=== PATIENT | male | born 1925 | race Caucasian/White ===

== ENCOUNTER → 2016-03-10 | Outpatient (CLI) | payer OTHER ==
[2016-03-10 09:49] LABS: BASO % 0.2 %; BASO ABS # 0.01 K/uL (0-0.2); EOS % 3.6 %; HEMATOCRIT 39.5 % (42-52); IG% 1.1 %; LYMPH % 26.8 %; MEAN CELL VOLUME 96.1 fL (80-100); MEAN CORPUSCULAR HEMOGLOBIN 32.6 pg (25-34); MEAN CORPUSCULAR HGB CONC 33.9 g/dl (32-36); MEAN PLATELET VOLUME 9.7 fL (7.4-10.4); MONO % 9.2 %; NEUT % 59.1 %; PLATELET COUNT 206 K/uL (130-400); RED BLOOD COUNT 4.11 M/uL (4.7-6.1); WHITE BLOOD COUNT 5.22 K/uL (4.8-10.8)
[2016-03-10 10:04] LABS: ALKALINE PHOSPHATASE 91 U/L (45-117); ALT/SGPT 23 U/L (12-78); AST/SGOT 12 U/L (15-37); BLOOD UREA NITROGEN 26 mg/dl (7-18); BUN/CREATININE RATIO 20.2 (10-20); CARBON DIOXIDE 25 mmol/L (21-32); CHLORIDE 108 mmol/L (98-107); GLUCOSE 86 mg/dl (70-99); POTASSIUM 4.5 mmol/L (3.5-5.1); SODIUM 141 mmol/L (136-145)
[2016-03-10 10:36] LABS: COMPLETE YES
== END | disposition home or self-care (01) ==
LOC: C.LABVPSUW 09:21
PROVIDERS: ATTEND Internal Medicine Critical Care Medicine
DX: D64.9 Anemia, unspecified (principal); N28.9 Disorder of kidney and ureter, unspecified; R63.4 Abnormal weight loss

== ENCOUNTER → 2016-03-17 | Outpatient (CLI) | payer OTHER ==
[~2016-03-17] MED LIST: OPTIRAY 320 IV PRN
--- NOTE | 2016-03-17 10:06 | DIAGNOSTIC IMAGING REPORT ---
CT ABD/PELVIS IV AND ORAL CONT CLINICAL HISTORY: Weight loss, hepatic mass, lung nodule. DIVERTICULITIS. COMPARISON STUDY: 05/12/2015 TECHNIQUE: Following the IV administration of 119 mL of Optiray-320, CT scan of the abdomen and pelvis was performed from the lung bases to the proximal femurs. Images are reviewed in the axial, sagittal, and coronal planes. IV contrast was administered without complication. CT DOSE: FINDINGS: Lower chest: There is evidence for pulmonary emphysema. There is a 1 cm right lower lobe pulmonary nodule abutting the paravertebral fat as visualized in image #53/501. There is an 8 x 3 mm left lower lobe subpleural pulmonary nodule is visualized in image #68/501. There is a 4 mm pulmonary nodule with the lingula as visualized in image #9/501. There is a 5 mm left lower lobe pulmonary nodule as visualized in image #82/501. There is a 3 mm right middle lobe pulmonary nodule as visualized is image #27/501. There is a 4 mm left lower lobe pulmonary nodule as visualized on image #85/501. There is a small hiatal hernia Liver: There is a 15 mm peripheral right lobe hepatic mass demonstrating peripheral nodular enhancement. This likely represents a hemangioma. There is a 15 mm left lobe hepatic mass demonstrating nodular enhancement, also likely representing a hemangioma. These remain similar in size to the prior April 2015 study Gallbladder: Unremarkable. Spleen: Normal in size and attenuation. Pancreas: Unremarkable. Adrenal glands: Unremarkable. Kidneys: There is inhomogeneous renal enhancement. Multiple tiny renal cysts are suspected. No solid renal masses are visualized Bowel: There are no transition zones to indicate bowel obstruction. There is extensive sigmoid diverticulosis. There are no acute peridiverticular inflammatory changes. Peritoneum: There is no intraperitoneal free air or abdominal ascites. There is small fat-containing left inguinal hernia Vasculature: The abdominal aorta is normal in course and caliber. Adenopathy: There is a 14 mm soft tissue nodule located anterior to the aortic bifurcation. This likely represents an enlarged lymph node. There is an enlarged 18 mm left external iliac chain lymph node. There is enlarged 11 mm left internal iliac artery lymph node. Pelvic viscera: There is marked prostamegaly (7.8 cm). Skeletal structures: There is a healing left inferior pubic ramus fracture. No lytic or blastic lesions are visualized. IMPRESSION: 1. Emphysema and multiple bilateral pulmonary nodules 2. Pathologic adenopathy involving the left iliac chain and aortic bifurcation 3. Marked prostatomegaly 4. No evidence of bowel obstruction. No evidence of free air 5. Right left lobe hepatic nodules, likely representing hemangiomas 6. Extensive diverticulosis. No evidence of acute peridiverticular inflammatory change Electronically signed by: Dave Green M.D. 03/17/2016 10:05 AM Dictated Date/Time: 03/17/2016 9:53 AM
--- NOTE | 2016-03-17 10:22 | DIAGNOSTIC IMAGING REPORT ---
CT SCAN OF THE CHEST WITH IV CONTRAST CLINICAL HISTORY: Weight loss. Lung nodule. COMPARISON STUDY: Nuclear bone scan dated 04/06/2006. TECHNIQUE: Following the IV administration of 119 cc of Optiray 320, CT scan of the thorax was performed from the thoracic inlet to the upper abdomen. Images are reviewed in the axial, sagittal, and coronal planes. IV contrast was administered without complication. CT DOSE: 882.02 mGy.cm FINDINGS: Thyroid: Imaged portions of the thyroid gland are normal in size and attenuation. Bilateral low-attenuation thyroid nodules measure up to 1.5 cm. Thoracic aorta: There is advanced after carotid calcification of the thoracic aorta, which is normal in caliber and demonstrates standard 3-vessel arch anatomy. No dissection is seen. Pulmonary vasculature: The pulmonary trunk is normal in caliber. There are no filling defects identified in the central pulmonary vessels to indicate pulmonary embolus. Note that this examination was not protocoled for evaluation of the pulmonary arteries. Heart: The heart is enlarged and without pericardial effusion. The coronary arteries are densely calcified. Lungs and pleural spaces: Emphysema and biapical scarring are identified. Patchy airspace opacities are present in the right upper lobe. No pleural effusion is identified. The trachea and central airways are clear. There are numerous (greater than 20) pulmonary and pleural-based nodules scattered throughout both lungs. A left upper lobe seen on image #103 and measures 11 mm. A nodule at the right lung base on image #203 measures 11 mm. A lingular nodule on image #205 measures 11 mm. Mediastinum: There is no mediastinal lymphadenopathy. [place]: Clear. Axillae: There is no axillary lymphadenopathy. Upper abdomen: The kidneys are atrophic and markedly heterogeneous. Small lesions in the right and left hepatic lobes are similar to previous and typical in appearance for hemangiomas. A small hiatal hernia is identified. Skeletal structures: The skeletal structures are heterogeneously osteopenic. Degenerative change is noted throughout the thoracic spine. No lytic or blastic bony lesions are seen. IMPRESSION: 1. There are mild patchy groundglass opacities identified in the right upper lobe. Correlate clinically for evidence of a mild infectious or inflammatory pneumonitis. 2. Cardiomegaly and emphysema. 3. There are numerous (greater than 20) pulmonary and pleural-based nodules measure up to 11 mm. These are of indeterminate etiology. Neoplasm is not excluded. At a minimum, imaging follow-up is recommended. 4. There is no mediastinal or hilar lymphadenopathy. 5. Additional changes as detailed above. Please refer to below summary of Fleischner criteria recommendations for follow-up of incidental CT nodules (Praveen Jaime, Guidelines for management of small pulmonary nodules detected on CT scans: A statement from the Fleischner Society, Radiology 237: [phone].) Low Risk Patient: Minimal or no smoking or other known risk factors for malignancy <=4 mm: No follow-up needed. >4-6 mm: Initial follow-up CT at 12 months; if unchanged, no further follow-up. >6-8 mm: Initial follow-up CT at 6-12 months then at 18-24 months if no change. >8 mm: Follow-up CT at \R\3, 9, 24 months, or PET and/or biopsy. High Risk Patient: History of smoking or other known risk factors <=4 mm: Follow-up at 12 months; if unchanged, no further follow-up. >4-6 mm: Initial follow-up CT at 6-12 months then at 18-24 months if no change. >6-8 mm: Initial follow-up CT at 3-6 months then at 9-12 and 24 months if no change. >8 mm: Same as low risk patient. Note: Nodule size measured as average of length and width. Ground glass or partly solid nodules may require longer follow-up to exclude indolent adenocarcinoma. Electronically signed by: Reji Jones M.D. 03/17/2016 10:21 AM Dictated Date/Time: 03/17/2016 9:55 AM
== END | disposition home or self-care (01) ==
LOC: C.CTS 09:15
PROVIDERS: ATTEND Internal Medicine Critical Care Medicine
DX: R63.4 Abnormal weight loss (principal); K76.9 Liver disease, unspecified; R91.1 Solitary pulmonary nodule; K57.92 Diverticulitis of intestine, part unspecified, without perforation or abscess without bleeding; J43.9 Emphysema, unspecified